=== PATIENT | male | born 1995 | race African-American/Black ===

== ENCOUNTER 2019-07-08 22:38 | Emergency (ER) | payer MEDICAID, OTHER ==
[~2019-07-08] VITALS: Ht 188 cm; Wt 77.1 kg
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
[2019-07-08] MEDS ORDERED: HYDROCODONE/APAP 5/325MG 1 EACH TABLET ONE (22:58)
[2019-07-08] MEDS ORDERED: ONDANSETRON 4 MG TAB.RAPDIS ONE (22:59)
[2019-07-08] MEDS ORDERED: ONDANSETRON 4 MG TAB.RAPDIS PO ONE (23:00)
[2019-07-08] MEDS ORDERED: HYDROCODONE/APAP 5/325MG 1 EACH TABLET PO ONE (23:00)
--- NOTE | 2019-07-08 23:19 | NUR ---
PHLEB AT BEDSIDE FOR LAB DRAW
[2019-07-08 23:28] LABS: BASOPHILS # (AUTO) 0.1 /CMM (0.0-0.2); BASOPHILS % (AUTO) 0.5 % (0.0-2.0); EOSINOPHILS % (AUTO) 1.6 % (0.0-6.0); HEMATOCRIT 43 % (39-51); HEMOGLOBIN 14.8 g/dL (13.5-17.5); LYMPHOCYTES # (AUTO) 4.4 /CMM (0.8-4.8); MEAN CORPUSCULAR HGB CONC 34 g/dl (31.0-36.0); MEAN CORPUSCULAR VOLUME 90 fL (80-96); MONOCYTES # (AUTO) 0.9 /CMM (0.1-1.30); MONOCYTES % (AUTO) 6.1 % (2.0-12.0); NEUTROPHILS # (AUTO) 9.1 /CMM (1.8-8.9); NEUTROPHILS % (AUTO) 61.8 % (43.0-81.0); PLATELET COUNT (AUTO) 198 /CMM (150-450); RED BLOOD CELL COUNT(AUTO) 4.84 MIL/uL (4.5-6.0); WHITE BLOOD COUNT (AUTO) 14.8 K/uL (4.3-11.0)
--- NOTE | 2019-07-08 23:43 | NUR ---
RADIOLOGY AT BEDSIDE FOR XRAY
[2019-07-08 23:48] LABS: CALCIUM, SERUM 8.8 mg/dL (8.5-10.1); CREATININE 1.2 mg/dL (0.6-1.3); POTASSIUM 3.3 mmol/L (3.5-5.1)
[2019-07-09] MEDS ORDERED: IOHEXOL-300 100 ML VIAL IV ONE (00:04)
[2019-07-09] MEDS ORDERED: IV NS 0.9% 250 ML IV ONE (00:05)
[2019-07-09] MEDS ORDERED: CT SWABBABLE VALVE TRANS SET 1 EA INFUS.SET MC ONE (00:05)
[2019-07-09] MEDS ORDERED: POTASSIUM CHLORIDE 20 MEQ TAB.PRT.SR PO ONE ×2 (00:30→00:59)
[2019-07-09] MEDS ORDERED: IV NS 0.9% 1,000 ML BAG IV ONE (00:30)
--- NOTE | 2019-07-09 00:53 | NUR ---
LEÓN ARAUZ [facility] CALLED FOR TRAUMA HIGHER LEVEL OF CARE. PER LUANN NO BEDS AVAILABLE.
[2019-07-09 01:06] VITALS: BP 121/70
--- NOTE | 2019-07-09 01:15 | NUR ---
PT ACCEPTED BY DR [facility]. [facility]
--- NOTE | 2019-07-09 01:17 | NUR ---
[facility] ETA [id number]. TRIP#[id number]
--- NOTE | 2019-07-09 01:30 | NUR ---
REPORT GIVEN TO DIMPLE POLO FOR CONITINUATION OF CARE.
[2019-07-09] MEDS ORDERED: ONDANSETRON HCL/PF 4 MG/2 ML VIAL ONE (01:43)
[2019-07-09] MEDS ORDERED: MORPHINE SULFATE INJ 4 MG/ML DISP.SYRIN ONE (01:43)
[2019-07-09] MEDS ORDERED: MORPHINE SULFATE INJ 2 MG/ML DISP.SYRIN IV ONE (02:00)
[2019-07-09] MEDS ORDERED: ONDANSETRON HCL/PF 4 MG/2 ML VIAL IVP ONE (02:00)
--- NOTE | 2019-07-09 02:28 | NUR ---
PT PICKED UP BY TRANSPORT
== END 2019-07-09 02:36 | disposition short-term general hospital (02) ==
LOC: ER 22:39
DX: S30.811A Abrasion of abdominal wall, initial encounter (principal); S60.512A Abrasion of left hand, initial encounter; S60.511A Abrasion of right hand, initial encounter; S80.212A Abrasion, left knee, initial encounter; S36.898A Other injury of other intra-abdominal organs, initial encounter; E87.6 Hypokalemia; R00.0 Tachycardia, unspecified; V29.49XA Motorcycle driver injured in collision with other motor vehicles in traffic accident, initial encounter; Y93.55 Activity, bike riding; Y92.488 Other paved roadways as the place of occurrence of the external cause; Y99.8 Other external cause status
CPT/HCPCS: 36415; 73120; 73130; 73564; 74177; 80048; 85025; 96374; 96375; 99285; J2270; J2405; J7030; J7050; Q0162; Q9967